=== PATIENT | male | born 1980 | race Caucasian/White ===

== ENCOUNTER 2016-10-04 23:09 | Emergency (ER) ==
[2016-10-04 23:22] VITALS: BP 138/87; TEMP 99.7; BMI 25.0
[2016-10-04] MEDS ORDERED: DECADRON 4 MG/ML SDV IM STA (23:29)
--- NOTE | 2016-10-04 23:32 | ED.PDOC ---
General ED Provider: Dr. TRISHA RAYGOZA Chief Complaint: Non-specific Complaint Stated Complaint: sinus draiange, left side face hurting, hurting all over,. Time Seen by Physician: 23:29 Mode of Arrival: Walk-In Information Source: Patient Primary Care Provider: JAYLEEN SANTOS Nursing and Triage Documentation Reviewed and Agree: Yes EENT Complaint Exam - Nasal Complaint/Exam Symptoms Are: Still present Timing: Constant Initial Severity: Moderate Current Severity: Moderate Location: Left Aggravating: Reports: None Alleviating: Reports: None Associated Signs and Symptoms: Reports: Nasal congestion, Sinus pain, Nasal discharge. Denies: Bruising, Hematuria, Hematochezia, Foreign body, Abnormal coags Nasal Surgical History: Reports: None Bleeding Present At: Left nostril Differential Diagnoses: Allergic Rhinitis, Sinusitis, Other (flu) Review of Systems - Review Of Systems Constitutional: Reports: Fever, Malaise, Weakness Eyes: Reports: No symptoms Ears, Nose, Mouth, Throat: Reports: Nose discharge Respiratory: Reports: No symptoms Cardiac: Reports: No symptoms GI: Reports: No symptoms : Reports: No symptoms Musculoskeletal: Reports: No symptoms Skin: Reports: No symptoms Neurological: Reports: No symptoms Endocrine: Reports: No symptoms Hematologic/Lymphatic: Reports: No symptoms All Other Systems: Reviewed and Negative Past Medical History - Past Medical History Previously Healthy: Yes Endocrine: Reports: None Cardiovascular: Reports: None Respiratory: Reports: None Hematological: Reports: None Gastrointestinal: Reports: None Genitourinary: Reports: None Neuro/Psych: Reports: None Musculoskeletal: Reports: None Cancer: Reports: None - Surgical History General Surgical History: Reports: None - Family History Family History: Reports: None - Social History Smoking Status: Never smoker Hx Substance Use: No Alcohol Screening: None - Immunizations Tetanus Shot up to Date: (UNKNOWN) Physical Exam - Physical Exam Appearance: Well-appearing, No pain distress, Well-nourished Eyes: RAJAT, EOMI, Conjunctiva clear ENT: Erythema Respiratory: Airway patent, Breath sounds clear, Breath sounds equal, Respirations nonlabored Cardiovascular: RRR, Pulses normal, No rub, No murmur GI/: Soft, Nontender, No masses, Bowel sounds normal, No Organomegaly Musculoskeletal: Normal strength, ROM intact, No edema, No calf tenderness Skin: Warm, Dry, Normal color Neurological: Sensation intact, Motor intact, Reflexes intact, Cranial nerves intact, Alert, Oriented Psychiatric: Affect appropriate, Mood appropriate Critical Care Note - Critical Care Note Total Time (mins): 0 Course - Course Orders, Labs, Meds: Orders Category Date Time Status RAPID FLU A/B Stat LAB 10/04/16 23:29 Uncollected Dexamethasone 4 mg/ml Inj [Decadron 4 mg/ml Sdv] MEDS 10/04/16 23:29 Stat 4 mg IM ONCE STA Vital Signs: Temp Pulse Resp BP Pulse Ox 10/04/16 23:12 99.7 F H 116 H 20 138/87 98 Departure - Departure Time of Disposition: 23:33 Disposition: HOME SELF-CARE Discharge Problem: Acute upper respiratory infection Sinusitis Qualifiers: Sinusitis location: frontal Chronicity: acute Recurrence: non-recurrent Qualifier Code: (J01.10) Acute frontal sinusitis, unspecified Instructions: Sinusitis (ED) Condition: Stable Pt referred to PMD for follow-up: No Additional Instructions: Increase hydration Tylenol prn take medications with food Prescriptions: Amoxicillin/Potassium Clav [Augmentin 500-125 mg Tab] 1 tab PO Q12HR #20 tablet Prednisone 10 mg PO BIDWM #14 tablet Allergies/Adverse Reactions: Allergies menthol Adverse Reaction (Verified 10/04/16 23:22) artificial cinnamon flavor Adverse Reaction (Uncoded 10/04/16 23:22) Home Medications: Ambulatory Orders Amoxicillin/Potassium Clav [Augmentin 500-125 mg Tab] 1 tab PO Q12HR #20 tablet 10/04/16 Guaifen/Phenyleph/Acetaminophn [Mucinex Sinus-Max Sev Congest] 1 each PO DIRECTED PRN 10/04/16 Prednisone 10 mg PO BIDWM #14 tablet 10/04/16 Disposition Discussed With: Patient, Family
[2016-10-04] MEDS ORDERED: AUGMENTIN 500-125 MG TAB PO STA (23:34)
[2016-10-04 23:55] LABS: FLU INTERNAL QC INTERNAL QC VALID; RAPID FLU A NEGATIVE (NEGATIVE); RAPID FLU B NEGATIVE (NEGATIVE)
== END 2016-10-05 00:20 | disposition home or self-care (01) ==
LOC: ED 23:09
DX: J06.9 Acute upper respiratory infection, unspecified (principal); J01.10 Acute frontal sinusitis, unspecified
CPT/HCPCS: 87804; 96372; 99283

== ENCOUNTER 2017-07-24 23:16 | Emergency (ER) ==
[2017-07-24 23:20] VITALS: BMI 25.0
[2017-07-24 23:23] VITALS: BP 136/70; TEMP 100
[2017-07-24] MEDS ORDERED: LIDOCAINE HCL 1% SDV SUBCUT STA (23:59)
[2017-07-24] MEDS ORDERED: DECADRON 4 MG/ML SDV IM STA (23:59)
[2017-07-24] MEDS ORDERED: ROCEPHIN IM STA (23:59)
--- NOTE | 2017-07-25 00:03 | ED.PDOC ---
General ED Provider: Dr. KIM MAYNARD-ER Chief Complaint: Non-specific Complaint Stated Complaint: my sinuses hurt Time Seen by Physician: 23:25 Mode of Arrival: Walk-In Information Source: Patient Exam Limitations: No limitations Nursing and Triage Documentation Reviewed and Agree: Yes Reviewed sepsis parameters & appropriate labs ordered?: Yes System Inflammatory Response Syndrome: Not Applicable Sepsis Protocol: For patient's 13 years and over: Temp is 96.8 and below OR 101 and greater Pulse >90 BPM Resp >20/minute Acutely Altered Mental Status Are patient's symptoms suggestive of a new infection, such as: -Pneumonia -Skin, Soft Tissue -Endocarditis -UTI -Bone, Joint Infection -Implantable Device -Acute Abdominal Infection -Wound Infection -Meningitis -Blood Stream Catheter Infection -Unknown Respiratory Complaint Exam - Respiratory Complaint/Exam Onset/Duration: 3 days Symptoms Are: Still present Timing: Constant Initial Severity: Mild Current Severity: Mild Location: Nose Aggravating: Reports: URI Alleviating: Reports: None Associated Signs and Symptoms: Reports: URI, Nasal congestion, Sinus discomfort , Sore throat. Denies: Rapid breathing, Dyspnea, Fever, Chills, Chest pain, Pleuritic chest pain, Wheezing, Hemoptysis, Dizziness, Calf pain, Calf swelling , Edema, Hoarseness, Vomiting, Weight loss, Increased thirst, Increased appetite Related History: Reports: Similar episode History of Healthcare-Acquired Pneumonia: No Sinus Tenderness: Frontal, Maxillary Grunting Respirations: No Kussmaul Respirations: No Differential Diagnoses: Sinusitis Review of Systems - Review Of Systems Constitutional: Reports: No symptoms Eyes: Reports: No symptoms Ears, Nose, Mouth, Throat: Reports: Nose discharge Respiratory: Reports: Cough Cardiac: Reports: No symptoms GI: Reports: No symptoms : Reports: No symptoms Musculoskeletal: Reports: No symptoms Skin: Reports: No symptoms Neurological: Reports: No symptoms Endocrine: Reports: No symptoms Hematologic/Lymphatic: Reports: No symptoms All Other Systems: Reviewed and Negative Past Medical History - Past Medical History Previously Healthy: Yes Endocrine: Reports: None Cardiovascular: Reports: None Respiratory: Reports: None Hematological: Reports: None Gastrointestinal: Reports: None Genitourinary: Reports: None Neuro/Psych: Reports: None Musculoskeletal: Reports: None Cancer: Reports: None - Surgical History General Surgical History: Reports: None - Family History Family History: Reports: None - Social History Smoking Status: Never smoker Hx Substance Use: No Alcohol Screening: None - Immunizations Tetanus Shot up to Date: Yes Physical Exam - Physical Exam Appearance: Well-appearing, No pain distress, Well-nourished Eyes: RAJAT, EOMI, Conjunctiva clear ENT: Rhinorrhea Neck: Supple Respiratory: Airway patent, Breath sounds clear, Breath sounds equal, Respirations nonlabored Cardiovascular: RRR, Pulses normal, No rub, No murmur GI/: Soft, Nontender, No masses, Bowel sounds normal, No Organomegaly Musculoskeletal: Normal strength Skin: Warm, Dry, Normal color Neurological: Sensation intact Psychiatric: Affect appropriate, Mood appropriate Critical Care Note - Critical Care Note Total Time (mins): 0 Course - Course Orders, Labs, Meds: Lab Review 07/24/17 23:35 Influenza A (Rapid) Negative by naat Influenza B (Rapid) Negative by naat Orders Category Date Time Status MOLECULAR FLU A/B Stat LAB 07/24/17 23:35 Completed MOLECULAR GROUP A STREP Stat LAB 07/24/17 23:35 Completed Ceftriaxone Sodium [Rocephin] MEDS 07/24/17 23:59 Stat 1 gm IM ONCE STA Dexamethasone 4 mg/ml Inj [Decadron 4 mg/ml Sdv] MEDS 07/24/17 23:59 Stat 4 mg IM ONCE STA Lidocaine HCl/Pf [Lidocaine HCl 1% Sdv] MEDS 07/24/17 23:59 Stat 5 ml SUBCUT ONCE STA Medications Generic Name Dose Route Start Last Admin Trade Name Freq PRN Reason Stop Dose Admin Ceftriaxone Sodium 1 gm 07/24/17 23:59 Rocephin IM 07/25/17 00:00 ONCE STA Dexamethasone Sodium Phosphate 4 mg 07/24/17 23:59 Decadron 4 Mg/Ml Sdv IM 07/25/17 00:00 ONCE STA Lidocaine HCl 5 ml 07/24/17 23:59 Lidocaine Hcl 1% Sdv SUBCUT 07/25/17 00:00 ONCE STA Vital Signs: Temp Pulse Resp BP Pulse Ox 07/24/17 23:20 100.0 F H 120 H 18 136/70 95 Departure - Departure Time of Disposition: 00:02 Disposition: HOME SELF-CARE Discharge Problem: Sinusitis Qualifiers: Sinusitis location: other Chronicity: acute Recurrence: non-recurrent Qualified Code(s): J01.80 - Other acute sinusitis Instructions: Sinusitis (ED) Condition: Good Pt referred to PMD for follow-up: Yes Additional Instructions: augmentin 875mg bid x 10 days plus medrol dose pack--recheck in 72hrs if not improved Allergies/Adverse Reactions: Allergies menthol Adverse Reaction (Verified 07/24/17 23:24) artificial cinnamon flavor Adverse Reaction (Uncoded 07/24/17 23:24) Home Medications: Ambulatory Orders 1 [No Reported Medications] 07/24/17 Disposition Discussed With: Patient, Family
== END 2017-07-25 00:30 | disposition home or self-care (01) ==
LOC: ED 23:16
DX: J01.90 Acute sinusitis, unspecified (principal)
CPT/HCPCS: 87502; 87651; 96372; 99282; 99283

== ENCOUNTER 2017-08-05 15:22 | Emergency (ER) ==
[2017-08-05 15:22] VITALS: BMI 25.0
[2017-08-05 15:30] VITALS: BP 125/85; TEMP 98
[2017-08-05] MEDS ORDERED: TORADOL IM STA (16:05)
--- NOTE | 2017-08-05 16:34 | CT ---
EXAM: CT NECK HISTORY: Severe pharyngitis status post treatment with antibiotics TECHNIQUE: CT neck without intravenous contrast. 3-mm axial sections. Coronal and sagittal reforma tions. FINDINGS: Diagnostic limitations exist without including contrast enhanced images. The tonsillar tissues are d iffusely swollen consistent with tonsillitis. No obvious parapharyngeal fluid collection seen. Ther e is no significant restriction of oropharyngeal airway caliber identified by CT. The epiglottis has normal size. There are prominent bilateral cervical and submandibular lymph nodes consistent with a degree of reactive lymphadenitis. The there is moderate bilateral maxillary sinus mucosal thickenin g. Mastoid processes are aerated. Salivary glands grossly within normal limits. Normal appearing t hyroid gland. Upper lung perales are clear. Bones within normal limits. IMPRESSION: 1. Diffuse enlargement of the tonsillar tissues consistent with tonsillitis. No convincing evidence of abscess or significant oropharyngeal airway caliber restriction. 2. Reactive lymphadenitis. 3. Moderate chronic maxillary sinusitis.
--- NOTE | 2017-08-05 16:45 | ED.PDOC ---
General ED Provider: Dr. ONESIMO AZEVEDO Chief Complaint: Sore Throat Stated Complaint: sore throat x 1 week. Just finished antibiotic yesterday and steroids last Monday for sinusitis and tonsilitis. Unable to eat or drink x 4 days. Taking Ibuprofen, cough drops Time Seen by Physician: 16:42 Mode of Arrival: Walk-In Information Source: Patient Nursing and Triage Documentation Reviewed and Agree: Yes Reviewed sepsis parameters & appropriate labs ordered?: No System Inflammatory Response Syndrome: Not Applicable Sepsis Protocol: For patient's 13 years and over: Temp is 96.8 and below OR 101 and greater Pulse >90 BPM Resp >20/minute Acutely Altered Mental Status Are patient's symptoms suggestive of a new infection, such as: -Pneumonia -Skin, Soft Tissue -Endocarditis -UTI -Bone, Joint Infection -Implantable Device -Acute Abdominal Infection -Wound Infection -Meningitis -Blood Stream Catheter Infection -Unknown System Inflammatory Response Syndrome: Not Applicable Review of Systems - Review Of Systems Constitutional: Reports: No symptoms Eyes: Reports: No symptoms Ears, Nose, Mouth, Throat: Reports: Throat pain Respiratory: Reports: No symptoms Cardiac: Reports: No symptoms GI: Reports: No symptoms : Reports: No symptoms Musculoskeletal: Reports: No symptoms Skin: Reports: No symptoms Neurological: Reports: No symptoms Endocrine: Reports: No symptoms Hematologic/Lymphatic: Reports: No symptoms All Other Systems: Reviewed and Negative Past Medical History - Past Medical History Previously Healthy: Yes Endocrine: Reports: None Cardiovascular: Reports: None Respiratory: Reports: None Hematological: Reports: None Gastrointestinal: Reports: None Genitourinary: Reports: None Neuro/Psych: Reports: None Musculoskeletal: Reports: None Cancer: Reports: None Other Pertinent Past Medical History: MONO, SCARLET FEVER - Surgical History General Surgical History: Reports: None - Family History Family History: Reports: None - Social History Smoking Status: Never smoker Hx Substance Use: No Alcohol Screening: None - Immunizations Tetanus Shot up to Date: No Physical Exam - Physical Exam Appearance: Ill-appearing Ill-appearing: Mild Pain Distress: Moderate Eyes: RAJAT, EOMI, Conjunctiva clear ENT: Ears normal, Erythema Neck: Supple Respiratory: Airway patent, Breath sounds clear, Breath sounds equal, Respirations nonlabored Cardiovascular: RRR, Pulses normal, No rub, No murmur GI/: Soft, Nontender, No masses, Bowel sounds normal, No Organomegaly Musculoskeletal: Normal strength, ROM intact, No edema, No calf tenderness Skin: Warm Neurological: Sensation intact, Motor intact, Reflexes intact, Cranial nerves intact, Alert, Oriented Psychiatric: Anxious Interpretation - Radiology Interpretation Radiology Interpretation By: Radiologist Radiology Results: Positive (Tonsillitis no evidence of abscess) Exam Interpreted: CT Scan Critical Care Note - Critical Care Note Total Time (mins): 0 Course - Course Orders, Labs, Meds: Orders Category Date Time Status Ketorolac Tromethamine [Toradol] MEDS 08/05/17 16:05 Discontinued 60 mg IM ONCE STA CT SOFT TISSUE NECK W/O CONTR Stat RADS 08/05/17 16:05 Completed Medications Discontinued Medications Generic Name Dose Route Start Last Admin Trade Name Freq PRN Reason Stop Dose Admin Ketorolac Tromethamine 60 mg 08/05/17 16:05 08/05/17 16:23 Toradol IM 08/05/17 16:06 60 mg ONCE STA Administration Vital Signs: Temp Pulse Resp BP Pulse Ox 08/05/17 15:22 98.0 F 91 H 16 125/85 97 Departure - Departure Time of Disposition: 16:52 Disposition: HOME SELF-CARE Discharge Problem: Sore throat symptom Instructions: Tonsillitis (ED) Condition: Stable Pt referred to PMD for follow-up: Yes IPMP verified?: Yes (no narcotics noted.) Additional Instructions: Take medications as prescribed Follow up with PCP in 3 days. Prescriptions: Hydrocodone/Acetaminophen [[place] 5-325 Tablet] 1 tab PO Q6HR PRN #12 tablet PRN Reason: PAIN Allergies/Adverse Reactions: Allergies menthol Adverse Reaction (Verified 08/05/17 15:30) artificial cinnamon flavor Adverse Reaction (Uncoded 08/05/17 15:30) Home Medications: Ambulatory Orders Hydrocodone/Acetaminophen [[place] 5-325 Tablet] 1 tab PO Q6HR PRN #12 tablet Disposition Discussed With: Patient
== END 2017-08-05 17:15 | disposition home or self-care (01) ==
LOC: ED 15:22
DX: J03.90 Acute tonsillitis, unspecified (principal)
CPT/HCPCS: 96372; 99282

== ENCOUNTER 2018-01-21 17:35 | Emergency (ER) ==
[2018-01-21 17:41] VITALS: BP 118/79; TEMP 98.6; BMI 25.4
[2018-01-21] MEDS ORDERED: SODIUM CHLORIDE 1,000 ML IV STA (18:00)
--- NOTE | 2018-01-21 18:34 | CT ---
EXAM: CT of the abdomen and pelvis without contrast: History: Patient with history of diarrhea. COMPARISON: None available at the time of dictation Technique: Non contrast CT of the abdomen and pelvis was performed with axial , sagital and coronal r econstuctions were obtained and reviewed. FINDINGS: No stones are identified in the bilateral kidneys, ureters or bladder. There is no hydronephrosis or hydroureter idenified. The appendix cannot be well visualized. Within the limits of this noncontrast study, no lesions are identified in the kidneys, adrenals, live r, spleen or pancreas. The gallbladder is present. No dilated bowel loops are identified. No foca l fluid collections or pathologically enlarged lymph nodes are identified in the abdomen or pelvis. Calcifications at the liver and spleen suggest granulomatous calcifications. Decreased density live r suggest diffuse liver fatty infiltration. Bone windows demonstrate no destructive osseous lesions are identified in the abdomen or pelvis. Limi neil evaluation of the lung bases appear clear. IMPRESSION: 1. Fatty infiltration of the liver. 2. Overall technically limited evaluation in the absence of contrast. The appendix cannot be well v isualized on this evaluation. If there is continued clinical concern for assessing the appendix or a ssessing for other acute inflammatory process, repeat CT abdomen and pelvis with IV and gastrointesti nal contrast could be performed to better assess.
--- NOTE | 2018-01-21 18:40 | ED.PDOC ---
General ED Provider: Dr. KIM MAYNARD-ER Chief Complaint: Diarrhea Stated Complaint: i have ibs but then monday i got fever, and vomiting and now diarrhea--fever and vomiting stopped Time Seen by Physician: 18:38 Mode of Arrival: Walk-In Information Source: Patient Exam Limitations: No limitations Nursing and Triage Documentation Reviewed and Agree: Yes Does patient meet sepsis criteria?: No System Inflammatory Response Syndrome: Not Applicable Sepsis Protocol: For patient's 13 years and over: Temp is 96.8 and below OR 101 and greater Pulse >90 BPM Resp >20/minute Acutely Altered Mental Status Are patient's symptoms suggestive of a new infection, such as: -Pneumonia -Skin, Soft Tissue -Endocarditis -UTI -Bone, Joint Infection -Implantable Device -Acute Abdominal Infection -Wound Infection -Meningitis -Blood Stream Catheter Infection -Unknown GI Complaint Exam - Vomiting/Diarrhea Complaint/Exam Onset/Duration: 2 days Symptoms Are: Still present Episodes of Vomiting over last 24 Hours: 0 Episodes of Diarrhea Over Last 24 Hours: 10 Initial Severity: Mild Current Severity: Mild Character of Vomiting: Reports: Non-bilious Character of Diarrhea: Reports: Watery Aggravating: Reports: None Alleviating: Reports: None Associated Signs and Symptoms: Denies: Dizziness, Light-headedness, Melena, Hematemesis, Fever, Abdominal pain, Cramping Kussmaul Respirations Present: No Differential Diagnoses: Dehydration, Viral Gastroenteritis, Bacterial Gastroenteritis Review of Systems - Review Of Systems Constitutional: Reports: No symptoms Eyes: Reports: No symptoms Ears, Nose, Mouth, Throat: Reports: No symptoms Respiratory: Reports: No symptoms Cardiac: Reports: No symptoms GI: Reports: Diarrhea, Nausea, Vomiting : Reports: No symptoms Musculoskeletal: Reports: No symptoms Skin: Reports: No symptoms Neurological: Reports: No symptoms Endocrine: Reports: No symptoms Hematologic/Lymphatic: Reports: No symptoms All Other Systems: Reviewed and Negative Past Medical History - Past Medical History Previously Healthy: Yes Endocrine: Reports: None Cardiovascular: Reports: None Respiratory: Reports: None Hematological: Reports: None Gastrointestinal: Reports: None Genitourinary: Reports: None Neuro/Psych: Reports: None Musculoskeletal: Reports: None Cancer: Reports: None Other Pertinent Past Medical History: MONO, SCARLET FEVER - Surgical History General Surgical History: Reports: None - Family History Family History: Reports: None - Social History Smoking Status: Never smoker Hx Substance Use: No Alcohol Screening: None Physical Exam - Physical Exam Appearance: Well-appearing, No pain distress, Well-nourished Eyes: RAJAT ENT: Ears normal, Nose normal, Oropharynx normal Neck: Supple Respiratory: Airway patent, Breath sounds clear, Breath sounds equal, Respirations nonlabored Cardiovascular: RRR GI/: Soft, Nontender, No masses, Bowel sounds normal, No Organomegaly Musculoskeletal: Normal strength Skin: Warm, Dry, Normal color Neurological: Sensation intact, Motor intact, Reflexes intact, Cranial nerves intact, Alert, Oriented Psychiatric: Affect appropriate, Mood appropriate Interpretation - Radiology Interpretation Radiology Interpretation By: Radiologist Radiology Results: Negative Exam Interpreted: CT Scan Critical Care Note - Critical Care Note Total Time (mins): 0 Course - Course Hematology/Chemistry: 01/21/18 18:05 01/21/18 18:05 Orders, Labs, Meds: Lab Review 01/21/18 01/21/18 01/21/18 18:00 18:05 18:05 WBC 8.40 RBC 4.82 Hgb 14.0 Hct 41.2 L MCV 85.5 MCH 29.0 MCHC 34.0 RDW Coeff of Marta 12.3 Plt Count 236 Immature Gran % (Auto) 0.4 Neut % (Auto) 73.3 Lymph % (Auto) 13.9 [place] % (Auto) 10.8 H Eos % (Auto) 1.4 Baso % (Auto) 0.2 Immature Gran # (Auto) 0.0 Neut # (Auto) 6.2 Lymph # (Auto) 1.2 [place] # (Auto) 0.9 Eos # (Auto) 0.1 Baso # (Auto) 0.0 ESR 12 Sodium 140 Potassium 3.5 Chloride 107 Carbon Dioxide 23 Anion Gap 13.5 BUN 21 H Creatinine 1.01 Estimated GFR (MDRD) 84.00 BUN/Creatinine Ratio 20.79 Glucose 90 Calcium 9.1 Total Bilirubin 1.1 AST 29 ALT 40 Alkaline Phosphatase 68 Total Protein 7.4 Albumin 3.9 Globulin 3.5 Albumin/Globulin Ratio 1.11 TSH 0.952 Free T4 0.99 Urine Color Urine Clarity Urine pH Ur Specific [place] Urine Protein Urine Glucose (UA) Urine Ketones Urine Blood Urine Nitrite Urine Bilirubin Urine Urobilinogen Ur Leukocyte Esterase 01/21/18 18:05 WBC RBC Hgb Hct MCV MCH MCHC RDW Coeff of Marta Plt Count Immature Gran % (Auto) Neut % (Auto) Lymph % (Auto) [place] % (Auto) Eos % (Auto) Baso % (Auto) Immature Gran # (Auto) Neut # (Auto) Lymph # (Auto) [place] # (Auto) Eos # (Auto) Baso # (Auto) ESR Sodium Potassium Chloride Carbon Dioxide Anion Gap BUN Creatinine Estimated GFR (MDRD) BUN/Creatinine Ratio Glucose Calcium Total Bilirubin AST ALT Alkaline Phosphatase Total Protein Albumin Globulin Albumin/Globulin Ratio TSH Free T4 Urine Color Dark Urine Clarity Clear Urine pH 5.5 Ur Specific [place] 1.025 Urine Protein Negative Urine Glucose (UA) Negative Urine Ketones Negative Urine Blood Negative Urine Nitrite Negative Urine Bilirubin Negative Urine Urobilinogen 0.2 Ur Leukocyte Esterase Negative Orders Category Date Time Status ED IV/MEDIPORT/POWERPORT .ONCE EMERGENCY 01/21/18 18:00 Active CBC W/ AUTO DIFF Stat LAB 01/21/18 18:05 Completed COMPREHENSIVE METABOLIC PANEL Stat LAB 01/21/18 18:05 Completed ESR Stat LAB 01/21/18 18:05 Completed FREE T4 (FREE THYROXINE) Stat LAB 01/21/18 18:00 Completed THYROID STIMULATING HORMONE Stat LAB 01/21/18 18:00 Completed URINALYSIS C & S IF INDICATED Stat LAB 01/21/18 18:05 Completed 0.9 % Sodium Chloride [Saline Flush] MEDS 01/21/18 18:00 Ordered 1 syr IVF PRN PRN Sodium Chloride 0.9% [Sodium Chloride] 1,000 ml MEDS 01/21/18 18:[address] ABDOMEN/PELVIS WO CONTRAST Stat RADS 01/21/18 18:00 Completed Medications Generic Name Dose Route Start Last Admin Trade Name Freq PRN Reason Stop Dose Admin Sodium Chloride 1 syr 01/21/18 18:00 01/21/18 18:31 Saline Flush IVF 1 syr PRN PRN Administration To flush IV Discontinued Medications Generic Name Dose Route Start Last Admin Trade Name Freq PRN Reason Stop Dose Admin Sodium Chloride 1,000 mls @ 1,000 mls/hr 01/21/18 18:00 01/21/18 18:15 Sodium Chloride IV 01/21/18 18:59 1,000 mls/hr BOLUS STA Administration Vital Signs: Temp Pulse Resp BP Pulse Ox 01/21/18 17:36 98.6 F 88 20 118/79 96 Departure - Departure Time of Disposition: 19:06 Disposition: HOME SELF-CARE Discharge Problem: Enteritis Instructions: Enteritis (ED) Condition: Good Pt referred to PMD for follow-up: Yes IPMP verified?: No Additional Instructions: lomotil q 6hrs prn loose stool #4--avoid dairy for 3 days--f/u with pcp Allergies/Adverse Reactions: Allergies menthol Adverse Reaction (Verified 01/21/18 17:44) artificial cinnamon flavor Adverse Reaction (Uncoded 08/05/17 15:30) Home Medications: Ambulatory Orders Escitalopram Oxalate [Lexapro] 20 mg PO DAILY 01/21/18 Disposition Discussed With: Patient
== END 2018-01-21 19:05 | disposition home or self-care (01) ==
LOC: ED 17:35
DX: K52.9 Noninfective gastroenteritis and colitis, unspecified (principal)
CPT/HCPCS: 36415; 80053; 81001; 84439; 84443; 85025; 85651; 96360; 99284